=== PATIENT | male | born 1985 | race Two or more races ===

== ENCOUNTER 2019-09-05 19:20 | Emergency (ER) | payer BC ==
[~2019-09-05] VITALS: Ht 185.4 cm; Wt 86.2 kg
--- NOTE | 2019-09-05 19:37 | NUR ---
BIBSELF C/O L KNEE PAIN. +SKIN INTACT, UNABLE TO BEAR WEIGHT S/P TWISTING WHILE CARRYING HIS CHILD. TO ER BED 2 IN COMFORTABLE POSSITION, NO PAIN AT THE MOMENT, DESCRIBED DISCOMFORT WHEN STANDING UP, VSS AWAITING MED EVAL
--- NOTE | 2019-09-05 20:06 | NUR ---
TECH AT BEDSIDE FOR X-RAY
--- NOTE | 2019-09-05 20:55 | NUR ---
Patient discharged to home in stable condition. Written and verbal after care instructions given. Patient verbalizes understanding of instruction and provided with cd of xray
[2019-09-05 20:56] VITALS: BP 136/77
== END 2019-09-05 20:57 | disposition home or self-care (01) ==
LOC: ER 19:23
DX: S83.8X2A Sprain of other specified parts of left knee, initial encounter (principal); W18.39XA Other fall on same level, initial encounter; Y93.89 Activity, other specified; Y92.89 Other specified places as the place of occurrence of the external cause; Y99.8 Other external cause status
CPT/HCPCS: 73564-TC